=== PATIENT | male | born 1950 | race Caucasian/White ===

== ENCOUNTER 2019-01-30 04:35 | Inpatient (IN) ==
--- NOTE | 2019-01-23 17:24 | EKG Report ---
Test Performed on : 01/23/2019 5:13:50 PM Test Reason : PAT Blood Pressure : / mmHG Vent. Rate : 061 BPM Atrial Rate : 061 BPM P-R Int : 176 ms QRS Dur : 094 ms QT Int : 410 ms P-R-T Axes : 052 029 048 degrees QTc Int : 412 ms Normal sinus rhythm. Possible Left atrial enlargement Borderline ECG When compared with ECG of 27-SEP-2016 13:02, No significant change was found Confirmed by Yassine PALMER, Ramiro ([id number]) on 01/23/2019 6:31:26 PM
[2019-01-23 17:35] LABS: URINE SOURCE CLEAN CATCH
[2019-01-23 17:36] LABS: BASO# 0.03 X1000 (0.0-0.2); BASO% 0.4 % (0.0-0.8); EOS# 0.11 X1000 (0.0-0.7); EOS% 1.6 % (0.0-10.0); HEMATOCRIT 43.6 % (42.0-52.0); IMM GRAN# 0.02 X1000 (0.0-0.04); IMM GRAN% 0.3 % (0.0-0.5); LYMPH# 1.74 X1000 (1.2-3.4); LYMPH% 25.7 % (20.5-51.1); MCH 34.6 PG (27-31); MCHC 34.4 g/dL (33-37); MCV 100.5 FL (81-99); MONO# 1.03 X1000 (0.11-0.59); MONO% 15.2 % (1.7-9.3); NEUT# 3.83 X1000 (1.4-6.5); NEUT% 56.8 % (42.2-75.2); PLT 211 X1000 (130-400); RBC 4.34 XMIL (4.7-6.1); RDW 12.2 % (11.5-14.5); WBC 6.76 X1000 (4.8-10.8)
[2019-01-23 17:38] LABS: BILIRUBIN URINE NEGATIVE (NEGATIVE); BLOOD URINE NEGATIVE (NEGATIVE); COLOR YELLOW; GLUCOSE URINE NEGATIVE (NEGATIVE); KETONE URINE NEGATIVE (NEGATIVE); LEUKOCYTES URINE NEGATIVE (NEGATIVE); NITRITE URINE NEGATIVE (NEGATIVE); PROTEIN URINE TRACE mg/dL (NEGATIVE); SP GRAVITY URINE 1.025; TURBIDITY URINE CLEAR (CLEAR); UROBILINOGEN URINE 2 mg/dL (NORMAL)
[2019-01-23 17:39] LABS: UR EPITHELIAL CELLS <10 /HPF (<10); URINE BACTERIA NEGATIVE /HPF; URINE RBC <10 /HPF (<10); URINE WBC <10 /HPF (<10)
[2019-01-23 17:44] LABS: INR 0.88; PROTIME 12.7 Seconds (11.0-16.0)
[2019-01-23 17:45] LABS: PTT 25.4 Seconds (22.3-41.8)
[2019-01-23 18:09] LABS: CREATININE 1.3 mg/dL (0.7-1.2); POTASSIUM 4.8 mmol/L (3.5-5.1)
[2019-01-30] MEDS ORDERED: DIPRIVAN 1% ONE (06:20)
[2019-01-30] MEDS ORDERED: LYRICA ONE (06:23)
[2019-01-30] MEDS ORDERED: LR 0 ML ONE (06:23)
[2019-01-30] MEDS ORDERED: REGLAN ONE (06:23)
[2019-01-30] MEDS ORDERED: PEPCID ONE (06:23)
[2019-01-30] MEDS ORDERED: COLACE ONE (06:23)
[2019-01-30] MEDS ORDERED: KEFZOL 2 GM/D5W 0 GM/0 ML IVPB ONE (06:23)
[2019-01-30] MEDS ORDERED: DURAMORPH ONE (06:33)
[2019-01-30] MEDS ORDERED: VANCOMYCIN ONE (06:34)
[2019-01-30] MEDS ORDERED: TORADOL ONE (06:34)
[2019-01-30] MEDS ORDERED: SENSORCAINE-MPF 0.5%/EPI 1:200,000 ONE (06:34)
[2019-01-30] MEDS ORDERED: CYKLOKAPRON 1,000 MG/NS 1,000 MG/100 ML IVPB ONE (06:34)
[2019-01-30] MEDS ORDERED: SODIUM CHLORIDE 0.9% ONE (06:34)
[2019-01-30] MEDS ORDERED: EXPAREL 1.3% ONE (06:35)
[2019-01-30] MEDS ORDERED: NEOSPORIN G.U. IRRIGANT ONE (06:35)
== END 2019-01-30 08:17 | disposition home or self-care (01) | DRG 554 ==
LOC: SURHOLD 04:35
PROVIDERS: ADMIT Orthopaedic Surgery Adult Reconstructive Orthopaedic Surgery; ATTEND Orthopaedic Surgery Adult Reconstructive Orthopaedic Surgery
CPT/HCPCS: 80048; 81001; 85025; 85610; 85730; 86850; 86900; 86901; 93005; 93010; A9270; C9290; J0690; J1885; J2274; J2275; J3370; J7120; Q9974

== ENCOUNTER 2019-03-06 01:31 | Inpatient (IN) ==
[2019-03-06] MEDS ORDERED: REGLAN ONE (11:05)
[2019-03-06] MEDS ORDERED: COLACE ONE (11:05)
[2019-03-06] MEDS ORDERED: PEPCID ONE (11:05)
[2019-03-06] MEDS ORDERED: KEFZOL 1 GM/D5W 2 GM/100 ML IVPB ONE (11:06)
[2019-03-06] MEDS ORDERED: LR 1,000 ML ONE ×2 (11:06→15:30)
[2019-03-06] MEDS ORDERED: CELEBREX ONE (11:06)
[2019-03-06] MEDS ORDERED: LYRICA ONE (11:06)
[2019-03-06 11:17] LABS: BASO# 0.04 X1000 (0.0-0.2); BASO% 0.6 % (0.0-0.8); EOS# 0.13 X1000 (0.0-0.7); EOS% 2.1 % (0.0-10.0); HEMATOCRIT 40.6 % (42.0-52.0); HEMOGLOBIN 14.7 g/dL (14.0-18.0); LYMPH# 1.37 X1000 (1.2-3.4); MCH 34.8 PG (27-31); MCHC 36.2 g/dL (33-37); MCV 96.2 FL (81-99); MONO% 11.3 % (1.7-9.3); MPV 10.2 FL (7.4-10.4); NEUT# 3.98 X1000 (1.4-6.5); PLT 165 X1000 (130-400); RBC 4.22 XMIL (4.7-6.1); RDW 13.1 % (11.5-14.5); WBC 6.22 X1000 (4.8-10.8)
[2019-03-06 11:24] LABS: INR 0.95; PROTIME 13.5 Seconds (11.0-16.0)
[2019-03-06 11:25] LABS: PTT 25.1 Seconds (22.3-41.8)
[2019-03-06 11:42] LABS: AGAP 14; BUN 13 mg/dL (8-22); CALCIUM 9.1 mg/dL (8.8-10.2); CHLORIDE 98 mmol/L (98-107); COSMO 283; ESTIMATED GFR > 60; GLUCOSE 169 mg/dL (70-104); POTASSIUM 3.5 mmol/L (3.5-5.1); SODIUM 140 mmol/L (136-145); TCO2 28 mmol/L (25-35)
[2019-03-06] MEDS ORDERED: TORADOL ONE (12:15)
[2019-03-06] MEDS ORDERED: XYLOCAINE-MPF 2% ONE (12:15)
[2019-03-06] MEDS ORDERED: VANCOMYCIN ONE (12:15)
[2019-03-06] MEDS ORDERED: MARCAINE 0.25% PF/EPI 1:200,000 ONE (12:15)
[2019-03-06] MEDS ORDERED: DURAMORPH ONE (12:15)
[2019-03-06] MEDS ORDERED: SODIUM CHLORIDE 0.9% ONE (12:16)
[2019-03-06] MEDS ORDERED: EXPAREL 1.3% ONE (12:16)
[2019-03-06] MEDS ORDERED: NEOSPORIN G.U. IRRIGANT ONE (12:16)
[2019-03-06] MEDS ORDERED: DIPRIVAN 1% ONE (12:16)
--- NOTE | 2019-03-06 13:10 | HISTORY AND PHYSICAL ---
CHIEF COMPLAINT: Left knee. HISTORY OF PRESENT ILLNESS: Edwar Ruiz is a 68-year-old male with a Past Medical History of coronary artery disease, myocardial infarction, obstructive sleep apnea, diabetes mellitus type 2, stomach ulcers, hypertension, hyperlipidemia, and osteoarthritis who presented to clinic with pain and discomfort in his left knee for approximately 4 years. The previous MRI revealed some changes along the patellofemoral joint and medial meniscus tears of actually bilateral knees. He has been having bilateral knee pain for quite some time. His biggest complaint today, however, is the left side. He has had a previous knee arthroscopy on the right side that he did not get a lot of relief from. He has exhausted conservative treatment on this left side. We have tried injections, physical therapy and anti-inflammatories. Due to the longstanding nature of Mr. Ruiz symptoms as well as his declining ability to do his activities of daily living, he wished to proceed with surgical intervention. PAST MEDICAL HISTORY: 1. Primary essential hypertension. 2. Anxiety. 3. Chronic pain syndrome. 4. Coronary artery disease. 5. Depression. 6. Diabetes mellitus type 2. 7. Erectile dysfunction. 8. Gastroesophageal reflux disease. 9. Myocardial infarction. 10. Hyperlipidemia. 11. Hypothyroidism. 12. Osteoarthritis. 13. Peripheral neuropathy. 14. Sleep apnea. 15. Stomach ulcers. PAST SURGICAL HISTORY: 1. Cardiac stent. 2. Cardiac bypass. 3. Hernia repair. 4. Liver biopsy. 5. Previous back or neck surgery. 6. Right knee arthroscopy. 7. TURP. FAMILY HISTORY: Noncontributory. SOCIAL HISTORY: Denies current alcohol, tobacco, or illicit drug use. He is and lives at home. ALLERGIES: Sulfa drugs. MEDICATIONS: 1. Amlodipine. 2. Aspirin 81 mg p.o. daily. 3. Bystolic 20 mg p.o. daily. 4. Clonidine 2.5/25.2 mg daily. 5. Lasix 20 mg p.o. daily. 6. Synthroid 50 mcg daily. 7. Lipitor 80 mg daily. 8. Metformin 500 mg p.o. b.i.d. 9. Prilosec 40 mg p.o. daily. 10. Ranexa 500 mg p.o. daily. 11. Zolpidem 10 mg p.o. daily. REVIEW OF SYSTEMS: A 10 point review of systems was completed and negative except what was mentioned above in HPI. PHYSICAL EXAMINATION: GENERAL: Patient alert, oriented, and cooperative with exam in no acute distress. HEENT: Head is atraumatic, normocephalic. Pupils are equal, round, and reactive to light. CARDIOVASCULAR: Regular rate and rhythm. PULMONARY: Breathing is even and nonlabored. GASTROINTESTINAL: Abdomen is nondistended. EXTREMITIES: He does have diffuse tenderness to palpation of the medial and lateral patellofemoral joint and medial joint line. He has discomfort with terminal extension and internal flexion. There is no notable effusion. IMAGING: MRI of the left knee related reveal change along the patellofemoral joint and medial meniscus tears. IMPRESSION: Osteoarthritis, bilateral knees. PLAN: Left total knee arthroplasty inpatient. At this point, Dr. Rizvi had discussed treatment with the patient. Given his longevity of symptoms of continued pain and discomfort, Dr. Rizvi recommended proceeding with a left total knee arthroplasty. He has continued to have significant instability and has had several falls. He has undergone previous multilevel laminectomy in 2016 as well as undergo neurological evaluation for Dr. Cabrera. Given his unsteady gait and difficulty mobilizing, Dr. Rizvi feels he would benefit from inpatient admission with subsequent inpatient rehabilitation. Surgery was discussed in great detail. The risks and benefits of the procedure were explained. Risks include risk of anesthesia, , bleeding, infection, failure to relieve pain, postoperative stiffness, nerve injury, blood clots, and other imponderables. All questions were answered. The patient has been cleared by his food and beverage director for surgery. Dictated by ASHLEY Rodriguez for Roberto Rizvi MD cc: ASHLEY Rodriguez MD [facility]
[2019-03-06] MEDS ORDERED: FENTANYL ONE (13:28)
[2019-03-06] MEDS: CYKLOKAPRON 1,000 MG/NS 2,000 MG/200 ML IVPB ONE ×2 (13:35→15:00)
[2019-03-06] MEDS ORDERED: MORPHINE ONE (13:46)
[2019-03-06] MEDS ORDERED: ZOFRAN ONE (13:46)
[2019-03-06 15:38] LABS: URINE SOURCE CATH
[2019-03-06] MEDS ORDERED: LASIX ONE (15:51)
[2019-03-06 15:53] LABS: BILIRUBIN URINE NEGATIVE (NEGATIVE); BLOOD URINE NEGATIVE (NEGATIVE); COLOR YELLOW; GLUCOSE URINE NEGATIVE (NEGATIVE); KETONE URINE 10 mg/dL (NEGATIVE); LEUKOCYTES URINE NEGATIVE (NEGATIVE); NITRITE URINE NEGATIVE (NEGATIVE); PROTEIN URINE 30 mg/dL (NEGATIVE); SP GRAVITY URINE 1.021; TURBIDITY URINE CLEAR (CLEAR); UROBILINOGEN URINE NORMAL (NORMAL)
[2019-03-06 15:57] LABS: UR EPITHELIAL CELLS <10 /HPF (<10); URINE BACTERIA NEGATIVE /HPF; URINE RBC <10 /HPF (<10); URINE WBC <10 /HPF (<10)
[2019-03-06] MEDS ORDERED: NS 1,000 ML ONE (16:14)
--- NOTE | 2019-03-06 18:01 | Diag Imaging Result Doc PS360 ---
KNEE 1-2 VIEWS-LEFT - 03/06/2019 INDICATION: Left total knee TECHNIQUE: Two views COMPARISON: None FINDINGS: There has been left total knee arthroplasty. Alignment is anatomic. No hardware fracture or loosening. IMPRESSION: No complication. Electronically signed by Gage Mayen 03/06/2019 5:59 PM
[2019-03-06] MEDS ORDERED: NITROGLYCERIN SL PRN (18:40)
[2019-03-06] MEDS ORDERED: CATAPRES PO PRN (18:40)
[2019-03-06] MEDS: OXY IR PO PRN (19:30)
[2019-03-06] MEDS ORDERED: MORPHINE IV PRN (19:45)
[2019-03-06] MEDS ORDERED: ZOFRAN PO PRN (19:45)
[2019-03-06] MEDS ORDERED: OXY IR PO PRN (19:45)
[2019-03-06] MEDS: NS 1,000 ML IV SCH (20:00)
--- NOTE | 2019-03-06 20:49 | OPERATIVE NOTE ---
PROCEDURE DATE: 03/06/2019 PREOPERATIVE DIAGNOSIS: Degenerative osteoarthritis of the left knee. POSTOPERATIVE DIAGNOSIS: Degenerative osteoarthritis of the left knee. PROCEDURE: Left total knee arthroplasty with DePuy Attune size 7 posterior stabilized femur, size 6 tibial base plate, a 5 mm rotating platform tibial insert, and a 38 mm medialized anatomic patella. SURGEON: Roberto Rizvi MD. MANAGER PACU: ASHLEY Rodriguez. SECOND TESTING LEAD: Rene Zhong RN. ANESTHESIA: General. IV FLUIDS: 900 mL lactated Ringer's. ESTIMATED BLOOD LOSS: 50 mL. TOURNIQUET TIME: 100 minutes at 350 mmHg. COMPLICATIONS: None. INDICATION: The patient is a pleasant 68-year-old male with a chronic history of worsening pain and discomfort of his left knee. X-rays revealed degenerative osteoarthritis. Recommendation to proceed with left total knee arthroplasty was offered. Risks and benefits of surgery were explained, including the risks of anesthesia, , bleeding, infection, failure to relieve pain, postoperative stiffness, nerve injury, and other imponderables. All questions were answered. The patient and family wished to proceed with surgery. DETAILS OF OPERATION: Patient was taken to the operating room and placed supine on the operating table. Once adequate anesthesia was obtained, patient's left lower extremity was subsequently prepped and draped in the usual sterile fashion. Esmarch was used to exsanguinate the left lower extremity. The tourniquet was inflated to 350 mmHg. A standard anterior incision was made with a skin knife. Medial and lateral skin envelopes were developed. Standard medial parapatellar arthrotomy was then performed. Patellar fat pad was excised. Retractors were then placed. Approximately 1 cm anterior to the PCL insertion, a starting reamer was passed. The intramedullary guide with a distal femoral cutting block was pinned in position. Distal femoral cut was then performed in standard fashion. A sizing block was placed and measured size 7. Corresponding pins were placed. Anterior, posterior, and chamfer cuts were then made. Attention then turned to the proximal tibia where using the extramedullary guide, the proximal tibia cutting block was pinned in position. Had good alignment confirmed with the alignment dana. The proximal tibia was then resected. The medial and lateral menisci were excised. A curved osteotome was used to remove the posterior osteophytes off the distal femur. After this had been performed, a spacer block was placed and had good soft tissue balance in both flexion and extension. After this had been performed, the attention then turned back to the proximal tibia where a size 6 tibial tray appeared be correct size. This was pinned in position. This was followed by a central reamer and a fin punch. A box cutting guide was then pinned on the distal femur. A box cut was then performed. The trial femoral component was then placed. Two lug holes were drilled. A trial tibial insert was then placed and had good soft tissue balance. The patella was everted and resected in a standard fashion. After this had been performed, the 38 mm medialized anatomic patella appeared to be correct size. This was followed by a guide to perform the drill holes. Patellar component was then placed and had good patellofemoral tracking. The trial components were then removed. Copious irrigation was then performed with antibiotic pulsatile lavage while vancomycin was mixed with cement on the back table. Sequential cementing was then performed, first for the tibial tray, and excess cement was removed with a Durham, followed by the femoral component and excess cement was removed with a Durham, followed by trial tibial insert in full extension, and axial loading was maintained while the cement cured. Patella was cemented in standard fashion. Patellar clamp was placed. While cement was curing, Exparel was placed in deep soft tissue, as well as the subcutaneous tissue. After cement had cured, peripheral cement was removed with a small osteotome. The 5 mm rotating platform tibial insert appeared to be correct size. The trial insert was removed. Exparel was placed in the deep posterior capsule. The wound was copiously irrigated once again with antibiotic pulsatile lavage. The 5 mm rotating platform tibial insert was then placed and had good soft tissue balancing and good patellofemoral tracking. A 1/8 Hemovac drain was placed and was not sewn in. Copious irrigation was then performed once again with antibiotic pulsatile lavage. A #1 Vicryl was then used to repair the subcutaneous tissue, followed by 2-0 Vicryl to repair the subcutaneous tissue and skin jessica. Adaptic, sterile 4 x 4's, Webril, cryo unit, and Paul wrap were applied to the left lower extremity. The patient tolerated the procedure well and was transferred to the recovery room in stable condition. cc: Roberto Rizvi MD
[2019-03-06] MEDS ORDERED: KEFZOL 2 GM/D5W 2 GM/50 ML IVPB IV SCH (21:00)
[2019-03-06] MEDS: MIRAPEX PO SCH (21:30)
[2019-03-06] MEDS: LIPITOR PO SCH (21:30)
[2019-03-06] MEDS: METAMUCIL POWDER PACKET PO SCH (21:30)
[2019-03-06] MEDS: PERIDEX MT SCH (21:30)
[2019-03-06] MEDS: NIASPAN PO SCH (21:30)
[2019-03-06] MEDS: XANAX PO SCH (21:30)
[2019-03-06] MEDS: KEFZOL 2 GM/D5W 2 GM/50 ML IVPB IV SCH (21:30)
--- NOTE | 2019-03-06 23:19 | CONSULTATION ---
DATE OF CONSULTATION: 03/06/2019 ATTENDING/REFERRING PHYSICIAN: Dr. Roberto Rizvi. HISTORY OF PRESENT ILLNESS: This 68-year-old male underwent a left total knee arthroplasty earlier today. In the recovery room, it was noted he had no urine in his Foster drainage bag. The patient states he normally takes Lasix, but has not had any for several days because he was told not to take it. The patient stopped drinking fluids last night. The patient states that in recovery the anesthesiologist gave him 40 mg of Lasix, and soon after that he put out over 500 mL of urine. He states this has never occurred before. He has a history of obstructive and irritative voiding symptoms. He is followed by Dr. Rodriguez in [place]. He states that several years ago he had a TURP. He states that helped and he is not having any voiding problems prior to this procedure. He states he does not think he will have any problems after his Foster catheter is removed. He is currently not taking any medication for his bladder or prostate. He has no history of kidney stones or hematuria. PAST MEDICAL HISTORY: Diabetes, hypertension, coronary artery disease, depression, erectile dysfunction, gastroesophageal reflux disease, history of stomach ulcers, history of GA, elevated cholesterol, hypothyroidism, arthritis, peripheral neuropathy, anxiety. CURRENT MEDICATIONS: Documented on the chart. PAST SURGICAL HISTORY: Coronary artery stent placement, coronary artery bypass grafting, hernia repair, liver biopsy, as noted in the HPI, transurethral thermotherapy, and then transurethral resection of the prostate. SOCIAL HISTORY: No current tobacco or alcohol use. ALLERGIES: He is allergic to sulfa drugs. REVIEW OF SYSTEMS: He denies any recent chest pains, pulmonary, urinary, or bowel problems. PHYSICAL EXAMINATION: General: A mildly obese, age apparent, normally developed, white male, oriented in all ways and cooperative. He is still under the influence of anesthesia somewhat. HEENT: Normal for age. Lungs: Clear. Cardiovascular: Regular rate and rhythm. Abdomen: Protuberant, soft, nontender. No hepatosplenomegaly or masses. Normal bowel sounds. Genitourinary: Normal male with Foster catheter in place draining clear urine. Both testes are down and palpably normal. Rectal: Deferred. Extremities: There is a dressing on the left knee consistent with his recent left TKA. Otherwise, no cyanosis, clubbing, or edema. DIAGNOSTIC DATA: Laboratory evaluation has normal serum electrolytes, BUN 13, creatinine 1. Serum glucose is 169. His PSA was 0.18 in 07/2018. CBC has a white count of 6.22, hemoglobin 14.7, hematocrit of 40.6, platelets are 165,000. A urinalysis today was completely clear. IMPRESSION AND PLAN: Patient with a history of enlarged prostate and some obstructive voiding symptoms who uses Lasix daily, but has not had any for several days. After he received Lasix his the kidneys made urine. Recommend remove the Foster catheter when indicated by his current surgical situation. Will scan his bladder 4 hours after the Foster is removed to ensure he is voiding normally. Thank you for this consultation. cc: MD Roberto Sampson MD
[2019-03-07] MEDS: KEFZOL 2 GM/D5W 2 GM/50 ML IVPB IV SCH (05:10)
[2019-03-07] MEDS: FOLTX PO SCH ×2 (05:13→23:47)
[2019-03-07] MEDS: OXY IR PO PRN ×5 (05:15→23:57)
[2019-03-07] MEDS: XARELTO PO SCH (06:26)
[2019-03-07 06:27] LABS: HEMATOCRIT 38.6 % (42.0-52.0); HEMOGLOBIN 13.3 g/dL (14.0-18.0)
[2019-03-07] MEDS: ALLEGRA PO SCH (06:27)
[2019-03-07] MEDS: XANAX PO SCH ×2 (06:27→23:59)
[2019-03-07] MEDS: SINGULAIR PO SCH (06:27)
[2019-03-07] MEDS: LYRICA PO SCH ×2 (06:28→17:01)
[2019-03-07] MEDS: FLONASE NAS SCH (06:28)
[2019-03-07] MEDS: BYSTOLIC PO SCH ×2 (06:28→16:58)
[2019-03-07] MEDS: GLUCOPHAGE PO SCH ×2 (06:29→16:58)
[2019-03-07] MEDS: NIASPAN PO SCH ×3 (06:29→23:47)
[2019-03-07] MEDS: SYNTHROID PO SCH (06:29)
[2019-03-07] MEDS: RANEXA PO SCH ×2 (06:29→16:59)
[2019-03-07 06:58] LABS: AGAP 10; BUN 13 mg/dL (8-22); CALCIUM 7.6 mg/dL (8.8-10.2); CHLORIDE 94 mmol/L (98-107); COSMO 268; CREATININE 0.9 mg/dL (0.7-1.2); ESTIMATED GFR > 60; GLUCOSE 131 mg/dL (70-104); SODIUM 133 mmol/L (136-145); TCO2 29 mmol/L (25-35)
--- NOTE | 2019-03-07 09:33 | ORTHOPAEDICS PROGRESS NOTE ---
DATE: 03/07/2019 SUBJECTIVE: The patient is a pleasant, 68-year-old male who is 1 day status post left total knee arthroplasty. He is currently resting comfortably. PHYSICAL EXAMINATION: On physical examination of the patient's left lower extremity, his dressing is intact. Calf is soft. He is neurovascularly distally. He is able to actively dorsiflex and plantar flex. LABORATORY DATA: His labs are pending. IMPRESSION: Postoperative day #1 status post left total knee arthroplasty. PLAN: At this point, we will change his dressing, discontinue his drain, Hep-Lock his IV, and discontinue his Foster. inpatient services director have been consulted for discharge planning for inpatient rehabilitation. The patient did have some decreased urinary output during the operative procedure and has a history of an enlarged prostate and obstructive voiding, and is status post TURP several years ago per Dr. Rodriguez. Dr. Davidson was consulted and underwent evaluation and patient did respond with the Lasix that was ordered and he recommended continuing to scan his bladder 4 hours after removal of the Foster this morning. We will plan on discontinuing the Foster and we will scan his bladder 4 hours after the Foster is removed per Dr. Davidson's instruction. cc: Roberto Rizvi MD
[2019-03-07] MEDS: NS 1,000 ML IV SCH ×2 (10:28→23:48)
[2019-03-07] MEDS: PERIDEX MT SCH ×2 (10:28→23:45)
[2019-03-07] MEDS: PRILOSEC PO SCH (13:22)
[2019-03-07] MEDS: HYDROCHLOROTHIAZIDE PO SCH (13:23)
[2019-03-07] MEDS: CENTRUM SILVER PO SCH (13:23)
--- NOTE | 2019-03-07 15:24 | Diag Imaging Result Doc PS360 ---
EXAM: CHEST-1 VIEW 03/07/2019 HISTORY: rehab TECHNIQUE: Erect AP portable at 1410 COMMENT: There is no evidence of acute cardiac or pulmonary disease. Compared to 03/24/2015 there has been no significant change. IMPRESSION: No acute disease. Electronically signed by Fred Torres 03/07/2019 3:21 PM
[2019-03-07] MEDS: NORVASC PO SCH (16:57)
[2019-03-07] MEDS: MORPHINE IV PRN (21:15)
[2019-03-07] MEDS: LIPITOR PO SCH (23:45)
[2019-03-07] MEDS: MIRAPEX PO SCH (23:45)
[2019-03-07] MEDS: METAMUCIL POWDER PACKET PO SCH (23:47)
[2019-03-08 06:09] LABS: HEMATOCRIT 34.4 % (42.0-52.0); HEMOGLOBIN 12.4 g/dL (14.0-18.0)
[2019-03-08] MEDS ORDERED: TYLENOL PO PRN (06:21)
[2019-03-08] MEDS ORDERED: OXY IR PO PRN (06:26)
[2019-03-08 06:31] LABS: BASO# 0.03 X1000 (0.0-0.2); BASO% 0.3 % (0.0-0.8); EOS# 0.05 X1000 (0.0-0.7); EOS% 0.4 % (0.0-10.0); HEMOGLOBIN 12.6 g/dL (14.0-18.0); IMM GRAN# 0.02 X1000 (0.0-0.04); IMM GRAN% 0.2 % (0.0-0.5); LYMPH# 1.97 X1000 (1.2-3.4); LYMPH% 17.4 % (20.5-51.1); MCH 34.4 PG (27-31); MCV 98.4 FL (81-99); MONO# 1.27 X1000 (0.11-0.59); MONO% 11.2 % (1.7-9.3); MPV 10.6 FL (7.4-10.4); NEUT# 7.96 X1000 (1.4-6.5); NEUT% 70.5 % (42.2-75.2); PLT 134 X1000 (130-400); RBC 3.66 XMIL (4.7-6.1); RDW 13.2 % (11.5-14.5)
[2019-03-08 07:54] LABS: URINE SOURCE CLEAN CATCH
[2019-03-08] MEDS: MORPHINE IV PRN ×3 (08:05→21:42)
[2019-03-08 08:06] LABS: BILIRUBIN URINE NEGATIVE (NEGATIVE); BLOOD URINE LARGE (NEGATIVE); COLOR YELLOW; GLUCOSE URINE TRACE mg/dL (NEGATIVE); KETONE URINE 10 mg/dL (NEGATIVE); LEUKOCYTES URINE MODERATE (NEGATIVE); NITRITE URINE NEGATIVE (NEGATIVE); PH URINE 6.5; PROTEIN URINE TRACE mg/dL (NEGATIVE); SP GRAVITY URINE 1.013; TURBIDITY URINE CLEAR (CLEAR); UROBILINOGEN URINE NORMAL (NORMAL)
[2019-03-08] MEDS: SYNTHROID PO SCH (08:06)
[2019-03-08 08:07] LABS: UR EPITHELIAL CELLS <10 /HPF (<10); URINE BACTERIA NEGATIVE /HPF; URINE RBC TNTC /HPF (<10); URINE WBC TNTC /HPF (<10)
[2019-03-08] MEDS: SINGULAIR PO SCH (08:07)
[2019-03-08] MEDS: RANEXA PO SCH ×2 (08:07→16:48)
[2019-03-08] MEDS: GLUCOPHAGE PO SCH ×2 (08:08→16:49)
[2019-03-08] MEDS: BYSTOLIC PO SCH ×2 (08:08→16:47)
[2019-03-08] MEDS: XARELTO PO SCH (08:08)
[2019-03-08] MEDS: FLONASE NAS SCH (08:09)
[2019-03-08] MEDS: ALLEGRA PO SCH (08:09)
[2019-03-08] MEDS: NIASPAN PO SCH ×3 (08:10→21:42)
[2019-03-08] MEDS: PERIDEX MT SCH ×2 (10:07→21:43)
[2019-03-08] MEDS: XANAX PO SCH ×2 (10:19→21:42)
[2019-03-08] MEDS: LYRICA PO SCH ×2 (10:19→16:49)
[2019-03-08] MEDS: OXY IR PO PRN (10:24)
--- NOTE | 2019-03-08 12:08 | ORTHOPAEDICS PROGRESS NOTE ---
DATE: 03/08/2019 SUBJECTIVE: The patient is a pleasant 68-year-old male who is 2 days status post left total knee arthroplasty. The patient is complaining of some discomfort in his left knee. He has also been running some fever. OBJECTIVE: Extremities: The patient's left lower extremity dressing is intact. His calf is soft, it does have expected swelling. He has active dorsiflexion and plantar flexion. LABORATORY DATA: WBC is 11.30, hemoglobin is 12.6, hematocrit is 36.0. Chest x-ray was negative. IMPRESSION: Status post left total knee arthroplasty. PLAN: At this point we will continue mobilization with physical therapy. We will continue to encourage incentive spirometer. We will continue to monitor his fever with a further workup. cc: Roberto Rizvi MD
[2019-03-08] MEDS: CENTRUM SILVER PO SCH (12:19)
[2019-03-08] MEDS: HYDROCHLOROTHIAZIDE PO SCH (12:19)
[2019-03-08] MEDS: PRILOSEC PO SCH (12:22)
[2019-03-08] MEDS ORDERED: ROCEPHIN 1 GM in NS 50 ML IV ONE (12:50)
[2019-03-08] MEDS: NS 1,000 ML IV SCH (15:50)
[2019-03-08] MEDS: NORVASC PO SCH (16:49)
[2019-03-08] MEDS: LIPITOR PO SCH (21:42)
[2019-03-08] MEDS: FOLTX PO SCH (21:42)
[2019-03-08] MEDS: METAMUCIL POWDER PACKET PO SCH (21:43)
[2019-03-08] MEDS: MIRAPEX PO SCH (21:43)
[2019-03-09] MEDS: NS 1,000 ML IV SCH (01:42)
[2019-03-09] MEDS: MORPHINE IV PRN ×2 (03:22→06:16)
[2019-03-09] MEDS: XARELTO PO SCH (06:16)
[2019-03-09] MEDS: SYNTHROID PO SCH (06:17)
[2019-03-09] MEDS: NIASPAN PO SCH (06:17)
[2019-03-09] MEDS: RANEXA PO SCH (06:17)
[2019-03-09] MEDS: SINGULAIR PO SCH (06:17)
[2019-03-09] MEDS: LYRICA PO SCH (06:17)
[2019-03-09] MEDS: FLONASE NAS SCH (06:18)
[2019-03-09] MEDS: ALLEGRA PO SCH (06:18)
[2019-03-09] MEDS: BYSTOLIC PO SCH (06:18)
[2019-03-09] MEDS: GLUCOPHAGE PO SCH (06:19)
[2019-03-09] MEDS: XANAX PO SCH (06:23)
[2019-03-09 07:28] LABS: HEMATOCRIT 31.7 % (42.0-52.0); HEMOGLOBIN 10.9 g/dL (14.0-18.0)
[2019-03-09] MEDS ORDERED: DOXYCYCLINE PO SCH (09:00)
[2019-03-09] MEDS ORDERED: LASIX PO SCH (09:00)
[2019-03-09] MEDS: PERIDEX MT SCH (09:11)
[2019-03-09] MEDS: OXY IR PO PRN (09:12)
[2019-03-09 11:02] VITALS: BP 107/60
--- NOTE | 2019-03-09 12:04 | DISCHARGE SUMMARY ---
ADMISSION DATE: 03/06/2019 DISCHARGE DATE: 03/09/2019 ADMITTING DIAGNOSES: 1. Degenerative osteoarthritis of the left knee. 2. Peripheral neuropathy. 3. Diabetes mellitus type 2. 4. Coronary artery disease. DISCHARGE DIAGNOSES: 1. Degenerative osteoarthritis of the left knee. 2. Peripheral neuropathy. 3. Diabetes mellitus type 2. 4. Coronary artery disease. 5. Status post left total knee arthroplasty. BRIEF HISTORY: The patient is a pleasant 68-year-old male with a chronic history of pain and discomfort in his left knee. Appears pain has progressed to affect his activities of daily living. The patient also had some limited mobility, instability and has had a history of several falls and is undergoing neurological evaluation for Dr. Cabrera. Given patient's longevity of symptoms and pain and discomfort, a recommendation to proceed with left total knee arthroplasty. HOSPITAL COURSE: The patient admitted to the hospital and underwent left total knee arthroplasty. He tolerated the procedure well. By postoperative day #2, his H and H stabilized to 12.6 and 36.0. He developed postoperative fever and underwent workup. He had a UA which was negative for bacteria, however had significant amount of blood. The patient responded with incentive spirometer and mobilization and he defervesced. By postop day #2, his hemoglobin stabilized to 12.4 and hematocrit was 34.4. The patient was slow to mobilize with physical therapy and, given his baseline difficulty with mobilization and balance issues, it was felt he would benefit from inpatient rehabilitation. The patient and family are agreeable to this. Prior to discharge, the patient is afebrile, tolerating a regular diet. His wound looked good. There are no signs or symptoms of infection. DISCHARGE MEDICATIONS: 1. OxyIR 5 mg one to two p.o. q. 4 hours p.r.n. pain. 2. Xarelto 10 mg p.o. daily x2 weeks. 3. For the remaining medications, please see medication list. DISCHARGE INSTRUCTIONS: 1. Patient discharged for inpatient rehabilitation. 2. Consult physical therapy with gait training and full weightbearing left lower extremity and range of motion exercises per total knee protocol. 3. Discontinue jessica in 11 days. 4. Follow up in the office in 3 to 4 weeks. cc: Roberto Rizvi MD MTDD
--- NOTE | 2019-03-09 20:08 | ORTHOPAEDICS PROGRESS NOTE ---
DATE: 03/09/2019 Mr. Ruiz is seen status post total knee replacement. His temperature is down today. His cultures show no obvious bacteria in the blood or urine. However, they are pending and preliminary. He does report decreasing pain and tenderness. His incision looks clean and dry. There are no signs of sepsis currently. Vital signs are stable. We will place him on p.o. doxycycline for any possible UTI, mild pneumonia, or wound infection about the knee. He will continue this in rehab. He has a bed available today, and I think it is appropriate for him to go to the step-down unit with antibiotic coverage. If he has worsening signs or symptoms, he can return to the hospital. cc: MD Roberto Croft MD
== END 2019-03-09 12:18 | DRG 470 ==
LOC: SURHOLD 01:31 → 4N 15:43
PROVIDERS: ADMIT Orthopaedic Surgery Adult Reconstructive Orthopaedic Surgery; ATTEND Orthopaedic Surgery Adult Reconstructive Orthopaedic Surgery
CPT/HCPCS: 71010; 71045; 73560; 80048; 81001; 82948; 85014; 85018; 85025; 85610; 85730; 86850; 86900; 86901; 87040; 87088; 88305; 88311; 94799; 97110; 97116; 97162; 97530; A9270; C9290; J0690; J0696; J1885; J1940; J2270; J2274; J2275; J2405; J3010; J3370; J7030; J7120; Q9974; S0020; XXXXX